=== PATIENT | female | born 1980 | race American Indian/Alaskan Native ===

== ENCOUNTER 2019-09-27 06:03 | Inpatient (IN) | payer MEDICAID ==
[2019-09-27] MEDS ORDERED: LACTATED RINGERS 1,000 ML ONE (06:42)
[2019-09-27 07:15] LABS: Basophils % (Auto) 0.5 % (0.0-1.8); Eosinophils % (Auto) 0.5 % (0.0-4.3); Hemoglobin 11.7 gm/dl (10.1-14.3); Lymphocytes # (Auto) 1.7 K/mm3 (1.2-5.4); Lymphocytes % (Auto) 26.9 % (13.4-35.0); Mean Corpuscular HGB Conc 34 % (30-34); Mean Corpuscular Volume 97 fl (79-97); Monocytes # (Auto) 0.5 K/mm3 (0.0-0.8); Monocytes % (Auto) 7.4 % (0.0-7.3); Red Blood Count 3.62 M/mm3 (3.65-5.03)
--- NOTE | 2019-09-27 07:27 | Anesthesia Consultation ---
Anesthesia Consult and Med Hx Date of service: 09/27/19 - Airway Anesthetic Teeth Evaluation: Good ROM Head & Neck: Adequate Mental/Hyoid Distance: Adequate Mallampati Class: Class II Intubation Access Assessment: Good - Pulmonary Exam CTA: Yes - Cardiac Exam Cardiac Exam: RRR - Pre-Operative Health Status ASA Pre-Surgery Classification: ASA2 Proposed Anesthetic Plan: Spinal - Pulmonary Hx Asthma: No COPD: No Hx Pneumonia: No - Cardiovascular System Hx Hypertension: No - Central Nervous System Hx Seizures: No Hx Psychiatric Problems: No - Endocrine Hx Renal Disease: No Hx End Stage Renal Disease: No Hx Hypothyroidism: No Hx Hyperthyroidism: No - Hematic Hx Anemia: No Hx Sickle Cell Disease: No - Other Systems Hx Alcohol Use: No
--- NOTE | 2019-09-27 07:28 | Anesthesia Day of Surgery ---
Anesthesia Day of Surgery - Day of Surgery Patient Examined: Yes Patient H&P Reviewed: Yes Patient is NPO: Yes
[2019-09-27] MEDS ORDERED: BICITRA ORAL LIQD 30ML PO ONE (07:30)
[2019-09-27] MEDS ORDERED: FAMOTIDINE 20 MG/2 ML INJ IV ONE (07:30)
[2019-09-27] MEDS ORDERED: METOCLOPRAMIDE 10 MG/2 ML INJ IV ONE (07:30)
[2019-09-27] MEDS ORDERED: DEXMEDETOMIDINE 200 MCG/2 ML VIAL IV ONE (07:39)
[2019-09-27] MEDS ORDERED: HYDROmorphone 1 MG/1 ML INJ IV PRN ×2 (08:00→08:30)
[2019-09-27] MEDS ORDERED: ceFAZolin/Water 2 GM/20 ML 2 GM/20 ML SYRINGE IV NR (08:00)
[2019-09-27] MEDS ORDERED: OXYTOCIN 20 UNIT/1000ML DRIP 20 UNITS/1,000 ML BAG IV SCH ×2 (08:00→11:57)
[2019-09-27] MEDS ORDERED: NALOXONE 0.4 MG/1 ML INJ IV PRN ×2 (08:00→11:57)
[2019-09-27] MEDS ORDERED: LACTATED RINGERS 1,000 ML IV SCH (08:00)
--- NOTE | 2019-09-27 08:04 | History and Physical Report ---
History of Present Illness Date of examination: 09/27/19 Date of admission: 09/27/19 06:03 Chief complaint: I'm here for my History of present illness: Pt is a 39 year old who presents at 39 weeks for elective repeat . She has had an uncomplicated course except for AMA. Pt transferred into [facility] at 26 weeks after receiving initial care at [place]. 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 She is also GBS positive. Past History Past Medical History: no pertinent history Past Surgical History: cholecystectomy, section [employer] History: herpes Family/Genetic History: none Social history: - Obstetrical History Expected Date of Delivery: 10/03/19 Actual Gestation: 39 Week(s) 1 Day(s) : 5 Spontaneous Abortions: 3 Number of Living Children: 1 Medications and Allergies Allergies Allergy/AdvReac Type Severity Reaction Status Date / Time oseltamivir [From Tamiflu] Allergy Swelling Verified 09/27/19 07:02 Home Medications Medication Instructions Recorded Confirmed Last Taken Type Vitamin 2 QAM 09/27/19 1 Day Ago History ~09/26/19 Active Meds: Active Medications Hydromorphone HCl (Dilaudid) 0.5 mg IV Q5M PRN PRN Reason: BREAK Hydromorphone HCl (Dilaudid) 0.5 mg IV Q4H PRN PRN Reason: breakthrough pain > 7/10 Oxytocin/Sodium Chloride (Pitocin/Ns 20 Unit/1000ml Drip) 20 units in 1,000 mls @ 0 mls/hr IV TITR BALJEET Lactated Ringer's (Lactated Ringers) 1,000 mls @ 2,250 mls/hr IV PREOP BALJEET Stop: 09/28/19 08:27 Last Admin: 09/27/19 06:45 Dose: 2,250 mls/hr Documented by: Cefazolin Sodium (Ancef/Sterile Water 2 Gm/20 Ml) 2 gm in 20 mls @ 80 mls/hr IV PREOP NR; Protocol Stop: 09/27/19 13:00 Naloxone HCl (Naloxone) 0.2 mg IV Q2MIN PRN PRN Reason: Res Rate </= 8 or 02 SAT < 92% Ondansetron HCl (Zofran) 4 mg IV Q8H PRN PRN Reason: Nausea And Vomiting Promethazine HCl (Phenergan) 25 mg PO Q6H PRN PRN Reason: Nausea And Vomiting Promethazine HCl (Phenergan) 25 mg [place] Q6H PRN PRN Reason: Nausea And Vomiting Sodium Chloride (Sodium Chloride Flush Syringe 10 Ml) 10 ml IV PRN NR Review of Systems All systems: negative Genitourinary: pelvic pain - Vital Signs Vital signs: Vital Signs Temp Resp 97.9 F 18 09/27/19 06:40 09/27/19 06:40 Temp Pulse Resp BP Pulse Ox 97.9 F 18 09/27/19 06:40 09/27/19 06:40 - Physical Exam Breasts: Cardiovascular: Regular rate, Normal S1, Normal S2 Lungs: Positive: Clear to auscultation, Normal air movement Abdomen: Positive: normal appearance, soft, normal bowel sounds. Negative: distention, tenderness Vulva: both: normal Vagina: Positive: normal moisture. Negative: discharge Cervix: Negative: lesion, discharge Uterus: Positive: normal size, normal contour Adnexa: both: normal Anus/Rectum: Positive: normal perianal skin, heme negative. Negative: rectal mass, hemorrhoids Extremities: Deep Tendon Reflex Grade: Normal +2 - Obstetrical FHR: auscultation normal Results Result Diagrams: 09/27/19 06:40 Abnormal lab results 09/27/19 Range/Units 06:40 RBC 3.62 L (3.65-5.03) M/mm3 Stevens % (Auto) 7.4 H (0.0-7.3) % All other labs normal. Assessment and Plan IUP at 39.1 weeks here for elective repeat . Admit for surgery. All consents signed and placed on chart. Will proceed as planned.
[2019-09-27 08:21] LABS: Platelet Count 139 K/mm3 (140-440)
[2019-09-27] MEDS ORDERED: PROMETHAZINE 25 MG RECT SUPP PR PRN ×2 (08:30→11:57)
[2019-09-27] MEDS ORDERED: PROMETHAZINE 25 MG TAB PO PRN (08:30)
[2019-09-27] MEDS ORDERED: ONDANSETRON 4 MG/2 ML INJ IV PRN (08:30)
[2019-09-27] MEDS ORDERED: KETOROLAC 30 MG/1 ML INJ ONE (09:13)
[2019-09-27] MEDS ORDERED: OXYTOCIN 10 UNIT/1 ML INJ ONE (09:13)
--- NOTE | 2019-09-27 09:50 | Post Anesthesia Evaluation ---
- Post Anesthesia Evaluation Patient Participated: Yes Airway Patent: Yes Stable Respiratory Function: Yes Nausea/Vomiting: No Temp > 96.8F: Yes Pain Manageable: Yes Adequeate Hydration: Yes Anesthesia Complications: No Block Receding Appropriately: Yes Patient on Ventilator: No
--- NOTE | 2019-09-27 10:26 | Procedure Note ---
OB Delivery Note - Delivery Date of Delivery: 09/27/19 Surgeon: RUIZ MAGAÑA Estimated blood loss: other (800cc) - Section Preop diagnosis: repeat Postop diagnosis: same section procedure: repeat low transverse Disposition: PACU Complications: none Narrative: see op report - A at 1 minute: 8 at 5 minutes: 9 Gender: Male
[2019-09-27] MEDS ORDERED: LANOLIN/ZINC/DIMETHICONE (LANSINOH) 7 GM TP PRN (11:57)
[2019-09-27] MEDS ORDERED: SIMETHICONE 80 MG CHEW TAB PO PRN (11:57)
[2019-09-27] MEDS ORDERED: ACETAMINOPHEN 325 MG TAB PO PRN (11:57)
[2019-09-27] MEDS ORDERED: D5W/LACTATED RINGERS 1,000 ML IV SCH (11:57)
[2019-09-27] MEDS ORDERED: MAGNESIUM HYDROXIDE (MOM) ORAL LIQD UDC PO PRN (11:57)
[2019-09-27] MEDS ORDERED: WITCH HAZEL/ GLYCERIN PAD TP PRN (11:57)
[2019-09-27] MEDS: MORPHINE 2 MG/1 ML INJ IV PRN ×2 (16:00→20:36)
[2019-09-27] MEDS: oxyCODONE /ACETAMINOPHEN 5-325MG TAB PO PRN (22:36)
[2019-09-28] LABS: Hematocrit 29.2 % (30.3-42.9); Hemoglobin 10.1 gm/dl (10.1-14.3)
[2019-09-28] MEDS: IBUPROFEN 800 MG TAB PO PRN ×2 (03:33→23:20)
[2019-09-28] MEDS: FERROUS SULFATE 325 MG TAB PO SCH (09:56)
[2019-09-28] MEDS: oxyCODONE /ACETAMINOPHEN 5-325MG TAB PO PRN ×2 (09:56→19:59)
[2019-09-28] MEDS: PRENATAL VIT27-FE FUMARATE-FOLIC ACID VIT TAB PO SCH (09:56)
[2019-09-29] MEDS: oxyCODONE /ACETAMINOPHEN 5-325MG TAB PO PRN ×2 (01:31→09:51)
[2019-09-29] MEDS: IBUPROFEN 800 MG TAB PO PRN (05:07)
[2019-09-29] MEDS ORDERED: TETANUS,DIPH,PERTUSS(ACELL) VACCINE 0.5 ML SYRINGE IM ONE (06:00)
[2019-09-29] MEDS: PRENATAL VIT27-FE FUMARATE-FOLIC ACID VIT TAB PO SCH (09:49)
[2019-09-29] MEDS: FERROUS SULFATE 325 MG TAB PO SCH (09:49)
--- NOTE | 2019-09-29 12:28 | Progress Note ---
Assessment and Plan POD 2 s/p rltcs. Doing well. Plan for discharge on today. Subjective - Subjective Date of service: 09/29/19 Interval history: Pt is a 39 year old POD 2 from a rltcs. Doing well. Pt ambulating well. She has passed flatus. Pt is requesting discharge on today. Patient reports: appetite normal, voiding normally, pain well controlled, flatus, ambulating normally [place]: doing well Objective - Vital Signs Latest vital signs: Vital Signs Temp Pulse Resp BP 09/29/19 08:25 98.3 F 67 18 125/76 09/29/19 05:07 18 09/29/19 01:31 18 09/29/19 00:00 98.8 F 72 16 99/68 09/28/19 23:20 18 09/28/19 19:59 18 09/28/19 17:47 98.5 F 73 18 103/58 Intake and Output 09/28/19 09/29/19 09/29/19 22:59 06:59 14:59 Intake Total 500 480 Balance 500 480 Intake: Oral 200 480 Intake, Free Water 300 Other: Total, Intake Amount 200 480 # Voids Void 1 - Exam Breasts: Present: deferred Cardiovascular: Present: Regular rate, Normal S1, Normal S2 Lungs: Present: Clear to auscultation, Normal air movement Abdomen: Present: normal appearance, soft, normal bowel sounds Uterus: Present: normal, firm Extremities: Present: normal Incision: Present: normal, dry, intact, dressed
--- NOTE | 2019-09-29 12:35 | Operative Report ---
Operative Report Operative Report: DATE OF OPERATION: 05/29/18 PREOPERATIVE DIAGNOSES: 1. Prior sectionx1 POSTOPERATIVE DIAGNOSES: Same as above OPERATION PERFORMED: Repeat low transverse . SURGEON: Brianna Keys MD ANESTHESIA: Spinal. ESTIMATED BLOOD LOSS: 800 mL. FINDINGS: A viable female weighing 7 pounds 12oz Apgars 8/9 COMPLICATIONS: None. DISPOSITION: Stable. DESCRIPTION OF OPERATION: After informed consent was obtained, the patient was brought back to the operative suite where adequate spinal anesthesia was obtained. The patient was then placed in the dorsal supine position and prepped and draped in the sterile fashion. A repeat Pfannenstiel skin incision was made with a blade and carried down through the subcutaneous tissues to the fascia, which was extended in the transverse fascia with Swift scissors. The fascial incision was then dissected off the rectus muscles both bluntly and sharply. The rectus muscle was in the midline. The peritoneum was entered bluntly. The peritoneal incision was then extended both superiorly and inferiorly with good visualization of the underlying bowel and bladder. The bladder blade was placed, and the vesicouterine fascia was incised to create a bladder flap in a low transverse position. This was developed digitally. A low transverse uterine incision was made with the blade and carried down through the layers of the uterus until membranes bulged through the incision. The uterine incision was then extended with the bandage scissors. Hand was placed inside the pelvis, and the head was brought up out of the pelvis and deli gustabo atraumatically with gentle fundal pressure. Prior to the head being delivered, actually through the skin, the sound of the baby starting to cry was noted. After the head was delivered, the mouth and nares were aggressively bulb suctioned. Remainder of the infant was delivered, and the infant was passed to the awaiting nursing staff for additional care. Cord was doubly clamped and cut and cord blood was obtained. The placenta was then manually extracted, and the uterus was exteriorized. The uterus was cleaned of remaining clot. The uterine incision was readily identified and closed in two layers, first one with running locking followed by second imbricating layer of 0 Vicryl. The uterus was placed back inside the pelvis. Copious irrigation and inspection of the incision was satisfactory. The peritoneum was then closed with 2-0 Vicryl in a running fashion. The fascia was closed with 0 PDSl from one angle to the next. Subcutaneous tissues were copiously irrigated, and final bleeders were cauterized. The incision was then reapproximated with 4-0 Bill needle. Patient tolerated procedure well.
--- NOTE | 2019-09-29 12:38 | Discharge Summary ---
Providers - Providers Date of Admission: 09/27/19 06:03 Date of discharge: 09/29/19 Attending physician: RUIZ MAGAÑA Primary care physician: RUIZ MAGAÑA Hospitalization Reason for admission: section Delivery: Procedure: repeat low transverse Procedure details: see op report Episiotomy: none Laceration: none Incision: normal, dry, intact Other procedures: none complications: none Discharge diagnosis: IUP at term delivered [place]ip[place] baby: male Hospital course: unremarkable Condition at discharge: Good Disposition: DC-01 TO HOME OR SELFCARE Plan - Discharge Medications Prescriptions: Docusate Sodium [Colace] 100 mg PO BID PRN #60 capsule PRN Reason: Constipation Ferrous Sulfate [Feosol 325 MG tab] 325 mg PO QDAY #60 tablet Ibuprofen [Motrin 800 MG tab] 800 mg PO Q6H PRN #40 tablet PRN Reason: Pain, Mild (1-3) oxyCODONE /ACETAMINOPHEN [Percocet 5/325 mg] 2 tab PO Q4H PRN #40 tablet PRN Reason: Pain, Moderate (4-6) - Provider Discharge Summary Activity: routine, no sex for 6 weeks, no heavy lifting 4 weeks, no strenuous exercise Diet: routine Instructions: routine Additional instructions: [] Smoking cessation referral if applicable(refer to patient education folder for contact #) [] Refer to [facility] Booklet Call your doctor immediately for: * Fever > 100.5 * Heavy vaginal bleeding ( >1 pad per hour) * Severe persistent headache * Shortness of breath * Reddened, hot, painful area to leg or breast * Drainage or odor from incision. * Keep incision clean and dry at all times and follow doctor's instructions regarding bathing/showering - Follow up plan Follow up: RUIZ MAGAÑA MD [Primary Care Provider] - 7 Days Forms: [facility] Discharge Summary
[2019-09-29 16:54] VITALS: BP 108/71
== END 2019-09-29 16:00 | disposition home or self-care (01) | DRG 765 ==
LOC: APU 06:03 → LD 10:01 → OB 12:47
PROVIDERS: ADMIT Obstetrics & Gynecology; ATTEND Obstetrics & Gynecology
PROC: 10D00Z1 Extraction of Products of Conception, Low, Open Approach (ICD-10-PCS; principal; 2019-09-28)
PROC: 3E0234Z Introduction of Serum, Toxoid and Vaccine into Muscle, Percutaneous Approach (ICD-10-PCS; 2019-09-29)
DX: O99.824 Streptococcus B carrier state complicating childbirth (principal); D62 Acute posthemorrhagic anemia; O34.211 Maternal care for low transverse scar from previous cesarean delivery; Z3A.39 39 weeks gestation of pregnancy; Z37.0 Single live birth; O90.81 Anemia of the puerperium; Z23 Encounter for immunization; Z90.49 Acquired absence of other specified parts of digestive tract; Z88.8 Allergy status to other drugs, medicaments and biological substances
CPT/HCPCS: 36415; 85014; 85018; 85025; 86850; 86900; 86901; 90471; 90715; G0378; J0690; J1885; J2270; J2405; J2590; J2765; J3490; J7120; J7121